=== PATIENT | female | born 1985 | race Caucasian/White ===

== ENCOUNTER 2022-06-18 19:46 | Emergency (ER) | payer OTHER ==
[~2022-06-18] VITALS: Ht 154.9 cm; Wt 63.5 kg
[~2022-06-18 19:46] MED LIST: ANAPROX DS550 MG PO; B-1100 MG PO; CLEOCIN HCL150 MG PO; FIORICET 325 MG1 TAB PO; MACROBID100 M1 PO; MOTRIN800 MG PO; TRAMADOL HCL50 MG PO
[2022-06-18 20:44] LABS: BILIRUBIN Negative (Negative); BLOOD 2+ (Negative); CLARITY Clear (Clear); COLOR Yellow (Yellow); GLUCOSE Negative (Negative); KETONE 4+ (Negative); LEUKO ESTERASE Negative (Negative); NITRITE Negative (Negative); SPECIFIC GRAVITY 1.025 (1.001-1.030); UROBILINOGEN 0.2 E.U./dl (0.0-1.0)
[2022-06-18 20:47] LABS: ALKALINE PHOSPHATASE 78 U/L (45-117); BUN 9 mg/dl (7-24); CHLORIDE 106 mmol/L (98-107); CREATININE 0.66 mg/dL (0.55-1.02); SGOT/AST 119 IU/L (3-35); SGPT/ALT 104 U/L (12-78); SODIUM 137 mmol/L (136-145); TOTAL PROTEIN 7.3 gm/dL (6.4-8.2)
[2022-06-18 20:53] LABS: BACTERIA 1+
[2022-06-18 20:54] LABS: HYALINE CAST 0-2
[2022-06-18 21:30] LABS: HEMATOCRIT 41.3 % (37.0-47.0); MEAN CELL VOLUME 90.2 fl (81.0-99.0); MEAN CORPUSCULAR HGB CONC 32.2 g/dl (33.0-37.0); RED BLOOD COUNT 4.58 10*6/uL (4.10-5.10); RED CELL DISTRI WIDTH 18.6 % (0-14.5); WHITE BLOOD COUNT 4.8 10*3/uL (4.8-10.8)
[2022-06-18 22:03] LABS: MANUAL DIFF REFLEX YES
[2022-06-18 22:05] LABS: PLATELET COUNT AUTOMATED 27 10*3/uL (130-400)
[2022-06-18 22:14] LABS: MICROCYTOSIS SLIGHT; PLATELET SUFFICIENCY LOW (NORMAL); TOTAL CELLS COUNTED 100 #CELLS
[2022-06-18] MEDS ORDERED: Ondansetron4 MG PO (22:18)
[2022-06-18] MEDS ORDERED: PROMETHAZINE-D473 M1 PO (22:18)
== END 2022-06-18 22:30 | disposition home or self-care (01) ==
LOC: ED 19:46
PROVIDERS: Physician Assistant
DX: B34.9 Viral infection, unspecified (principal); Z20.822 Contact with and (suspected) exposure to COVID-19; Z88.0 Allergy status to penicillin; Z98.890 Other specified postprocedural states

== ENCOUNTER 2022-12-12 16:38 | Emergency (ER) | payer OTHER ==
[~2022-12-12] VITALS: Ht 152.4 cm; Wt 68.9 kg
[~2022-12-12 16:38] MED LIST changes: +Ondansetron4 MG PO; +PROMETHAZINE-D473 M1 PO
== END 2022-12-12 18:08 | disposition home or self-care (01) ==
LOC: ED 16:38
DX: S93.402A Sprain of unspecified ligament of left ankle, initial encounter (principal); Z88.0 Allergy status to penicillin; Z98.890 Other specified postprocedural states; W10.9XXA Fall (on) (from) unspecified stairs and steps, initial encounter; Y93.89 Activity, other specified; Y92.89 Other specified places as the place of occurrence of the external cause; Y99.8 Other external cause status

== ENCOUNTER → 2023-06-23 | Outpatient (CLI) | payer OTHER ==
[2023-06-23 10:09] LABS: CHOLESTEROL 199 mg/dL (<200); LDL CHOLESTEROL 138 mg/dL (9-159); TRIGLYCERIDES 141 mg/dl (<150)
[2023-06-24 05:06] LABS: HBSAG Negative (Negative); HEP B CORE AB, IGM Negative (Negative); HEPATITIS C ANTIBODY Non Reactive (Non Reactive)
== END | disposition home or self-care (01) ==
LOC: LAB 08:19 → US 08:30
PROVIDERS: ATTEND Nurse Practitioner Family
DX: R74.8 Abnormal levels of other serum enzymes (principal)